=== PATIENT | female | born 1975 | race Two or more races ===

== ENCOUNTER 2018-03-02 19:25 | Emergency (ER) | payer MEDICAID, OTHER ==
[2018-03-02] MEDS ORDERED: IBUPROFEN 600 MG TAB PO ONE (20:14)
[2018-03-02] MEDS ORDERED: CYCLOBENZAPRINE 10 MG TAB PO ONE (20:14)
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
[2018-03-02 21:10] VITALS: BP 126/57
== END 2018-03-02 21:11 | disposition home or self-care (01) ==
DX: S16.1XXA Strain of muscle, fascia and tendon at neck level, initial encounter (principal); S29.019A Strain of muscle and tendon of unspecified wall of thorax, initial encounter; V49.40XA Driver injured in collision with unspecified motor vehicles in traffic accident, initial encounter